=== PATIENT | female | born 2000 ===

== ENCOUNTER 2024-08-27 16:23 | Emergency (ER) | payer OTHER ==
[2024-08-27] MEDS: Oxymetazoline 0.05% Nasal Spray 30 ML Bottle NAS ONE (17:57)
[2024-08-27] MEDS: Azithromycin 250 MG Tab PO STA (19:11)
[2024-08-27] MEDS: Acetaminophen 500 MG Tab PO ONE (19:15)
== END 2024-08-27 19:22 | disposition home or self-care (01) ==
LOC: MW.ED 16:23
DX: O99.512 Diseases of the respiratory system complicating pregnancy, second trimester (principal); J06.9 Acute upper respiratory infection, unspecified; Z75.3 Unavailability and inaccessibility of health-care facilities; Z79.899 Other long term (current) drug therapy; Z3A.21 21 weeks gestation of pregnancy
CPT/HCPCS: 71046; 99283; A9270; 99282

== ENCOUNTER 2024-12-28 16:20 | Inpatient (IN) | payer OTHER ==
[2024-12-28] MEDS ORDERED: Sodium Chloride 0.9% 2.5 ML Syringe FLUSH PRN (18:13)
[2024-12-28] MEDS ORDERED: Carboprost Tromethamine 250 MCG/1 mL Vial IM PRN (18:13)
[2024-12-28] MEDS ORDERED: Water For Irrigation,Sterile 1,000 ML Container IRR PRN (18:13)
[2024-12-28] MEDS ORDERED: Sodium Chloride 0.9% 10 ML Syringe FLUSH PRN (18:13)
[2024-12-28] MEDS ORDERED: Oxytocin/0.9 % Sodium Chloride 30 UNIT/500 ML BAG IV SCH (18:15)
[2024-12-28 18:24] LABS: MEAN PLATELET VOLUME 9.0 fL (9.4-12.3); NRBC ABSOLUTE 0.00 K/uL (0.00-0.02); NRBC PERCENT 0.0 /100WBC (0.0-0.2); PLATELET COUNT,PLT 358 K/uL (150-400); RED BLOOD CELL COUNT 4.39 M/uL (4.10-5.30); WHITE BLOOD CELL COUNT,WBC 12.54 K/uL (3.9-11.3)
[2024-12-28] MEDS: Misoprostol 25 MCG (1/4 of 100 MCG) Tab PO ONE (20:08)
[2024-12-28] MEDS: Misoprostol 25 MCG (1/4 of 100 MCG) Tab VAG PRN (20:08)
[2024-12-29] MEDS: Lactated Ringers 1,000 ML IV SCH (00:12)
[2024-12-29] MEDS: Nalbuphine 10 MG/1 ML Vial IVPUSH PRN ×2 (02:07→22:12)
[2024-12-29] MEDS: Misoprostol 25 MCG (1/4 of 100 MCG) Tab VAG PRN (04:00)
[2024-12-29] MEDS: Ondansetron 4 MG/2 ML SDV IVPUSH PRN (07:09)
[2024-12-29] MEDS ORDERED: fentaNYL 100 MCG/2 ML SDV IVPUSH PRN (12:24)
[2024-12-29] MEDS: Butorphanol 1 MG/ML SDV IVPUSH PRN (13:42)
[2024-12-29] MEDS ORDERED: Misoprostol 25 MCG (1/4 of 100 MCG) Tab PO PRN (21:20)
[2024-12-30] MEDS: Ropivacaine HCl/PF 400 MG in Premix Bag 1 BAG EPIDUR SCH (01:07)
[2024-12-30] MEDS ORDERED: ePHEDrine 50 MG/ML SDV IVPUSH PRN (01:16)
[2024-12-30] MEDS ORDERED: dexmedeTOMIDine HCl 200 MCG/2 ML SDV EPIDUR SCH (01:30)
[2024-12-30] MEDS: Oxytocin/0.9 % Sodium Chloride 30 UNIT/500 ML BAG IV SCH (01:50)
[2024-12-30] MEDS: Lactated Ringers 1,000 ML IRR SCH (07:06)
[2024-12-30] MEDS: dexmedeTOMIDine HCl 200 MCG/2 ML SDV ONE (09:11)
[2024-12-30] MEDS: Ropivacaine HCl/PF 200 ML ONE (09:11)
[2024-12-30] MEDS: Terbutaline 1 MG/ML SDV SUBCUT PRN (11:16)
[2024-12-30] MEDS ORDERED: Morphine PF 10 MG/10 ML SDV ONE (12:52)
[2024-12-30] MEDS ORDERED: Ropivacaine 0.5% 5 MG/ML 30 ML SDV ONE (12:52)
[2024-12-30] MEDS ORDERED: Ketorolac 30 MG/ML SDV ONE (12:52)
[2024-12-30] MEDS ORDERED: Ondansetron 4 MG/2 ML SDV ONE (12:52)
[2024-12-30] MEDS ORDERED: Oxytocin 10 Units/1 ML SDV ONE ×2 (12:52→14:09)
[2024-12-30] MEDS ORDERED: Dexamethasone Sod Phos Preservative Free 10 MG/ML Vial ONE (12:52)
[2024-12-30] MEDS ORDERED: fentaNYL 100 MCG/2 ML SDV ONE (12:52)
[2024-12-30] MEDS ORDERED: Midazolam 1 MG/ML 2 ML SDV ONE (13:51)
[2024-12-30] MEDS ORDERED: Propofol 200 MG/20 ML SDV ONE (14:02)
[2024-12-30] MEDS ORDERED: Ondansetron 4 MG/2 ML SDV IVPUSH PRN ×3 (14:39→16:34)
[2024-12-30] MEDS ORDERED: Albuterol 0.083% 2.5 MG/3 ML Neb Soln NEB PRN (14:39)
[2024-12-30] MEDS ORDERED: fentaNYL 100 MCG/2 ML SDV IVPUSH PRN (14:39)
[2024-12-30] MEDS ORDERED: diphenhydrAMINE 50 MG/ML SDV IVPUSH PRN (14:39)
[2024-12-30] MEDS ORDERED: fentaNYL 50 MCG/ML SDV IVPUSH PRN (14:39)
[2024-12-30] MEDS ORDERED: Nalbuphine 10 MG/1 ML Vial IVPUSH PRN (14:39)
[2024-12-30] MEDS ORDERED: Acetaminophen/oxyCODONE 325-5 MG Tab PO PRN (14:39)
[2024-12-30] MEDS ORDERED: Naloxone 0.4 MG/ML SDV IVPUSH PRN (14:39)
[2024-12-30] MEDS ORDERED: droPERidol 2.5 MG/ML SDV IVPUSH ONE (14:43)
[2024-12-30] MEDS ORDERED: Sodium Chloride 0.9% 2.5 ML Syringe FLUSH PRN (16:34)
[2024-12-30] MEDS ORDERED: Sodium Chloride 0.9% 10 ML Syringe FLUSH PRN (16:34)
[2024-12-30] MEDS ORDERED: Carboprost Tromethamine 250 MCG/1 mL Vial IM PRN (16:34)
[2024-12-30] MEDS ORDERED: Lanolin 100% Cream 7 GM Tube TOP PRN (16:34)
[2024-12-30] MEDS ORDERED: Naloxone 0.4 MG/ML SDV IVPUSH ONE (16:34)
[2024-12-30] MEDS ORDERED: Oxytocin/0.9 % Sodium Chloride 30 UNIT/500 ML BAG IV SCH (16:45)
[2024-12-30 16:47] LABS: PH,UMBILICAL ARTERIAL 7.32 (7.18-7.38); PH,UMBILICAL VENOUS 7.36 (7.25-7.45)
[2024-12-30] MEDS: Ketorolac 30 MG/ML SDV IVPUSH SCH (19:15)
[2024-12-31 05:34] LABS: MEAN PLATELET VOLUME 8.7 fL (9.4-12.3); NRBC ABSOLUTE 0.00 K/uL (0.00-0.02); NRBC PERCENT 0.0 /100WBC (0.0-0.2); PLATELET COUNT,PLT 266 K/uL (150-400); RED BLOOD CELL COUNT 3.26 M/uL (4.10-5.30); WHITE BLOOD CELL COUNT,WBC 17.40 K/uL (3.9-11.3)
[2024-12-31 06:11] LABS: BAND ABSOLUTE MAN 0.52; BAND PERCENT MAN 3 %; EOSINOPHILS ABSOLUTE MAN 0.35 K/uL (0.00-0.45); EOSINOPHILS PERCENT MAN 2 % (0-6); LYMPHOCYTES ABSOLUTE MAN 3.31 K/uL (1.00-4.80); LYMPHOCYTES PERCENT MAN 19 % (24-44); MONOCYTES ABSOLUTE MAN 0.87 K/uL (0.00-0.80); MONOCYTES PERCENT MAN 5 % (0-8); SEG NEUTROPHILS ABSOLUTE MAN 12.35 K/uL (1.80-7.70); SEG NEUTROPHILS PERCENT MAN 71 % (41-71)
[2024-12-31 08:06] LABS: A/G RATIO 0.6 (0.9-1.6); ALANINE AMINOTRANSFERASE,ALT 14.0 IU/L (14-63); ASPARTATE AMNIOTRANSFERASE,AST 24.0 IU/L (15-37); BILIRUBIN TOTAL 0.2 mg/dL (0.2-1.0); BLOOD UREA NITROGEN,BUN 8.0 mg/dL (7.0-18.0); CARBON DIOXIDE,CO2 28.8 mmol/L (21.0-32.0); CHLORIDE,CL 105.0 mmol/L (98-107); CREATININE 0.6 mg/dL (0.6-1.0); EST CRCL DRUG DOSING (CG) 105.64 mL/min; GLUCOSE RANDOM 86.0 mg/dL (74-106); POTASSIUM,K 3.7 mmol/L (3.5-5.1); PROTEIN TOTAL,TP 5.2 g/dL (6.4-8.2); SODIUM,NA 138.0 mmol/L (136-145)
[2024-12-31 08:09] LABS: ESTIMATED GFR 130.0 mL/min (>60)
[2024-12-31] MEDS: Sodium Ferric Gluconate Cmplex 125 MG in Sodium Chloride 0.9% 100 ML IV SCH (09:58)
== END 2025-01-02 13:07 | disposition home or self-care (01) | DRG 788 ==
LOC: MW.OBCHECK 16:20 → MW.OB 16:22 → MW.OBCHECK 18:13 → MW.OB 18:13 → OBSVTOIN 12-30 13:40 → MW.OB 12-30 18:37
PROVIDERS: ADMIT Obstetrics & Gynecology; ATTEND Obstetrics & Gynecology
PROC: 10907ZC Drainage of Amniotic Fluid, Therapeutic from Products of Conception, Via Natural or Artificial Opening (ICD-10-PCS; 2024-12-30)
PROC: 3E0R3BZ Introduction of Anesthetic Agent into Spinal Canal, Percutaneous Approach (ICD-10-PCS; 2024-12-30)
PROC: 10D00Z1 Extraction of Products of Conception, Low, Open Approach (ICD-10-PCS; principal; 2024-12-30 13:00)
DX: O24.425 Gestational diabetes mellitus in childbirth, controlled by oral hypoglycemic drugs (principal); O99.214 Obesity complicating childbirth; O90.81 Anemia of the puerperium; Z3A.39 39 weeks gestation of pregnancy; Z37.0 Single live birth; Z79.899 Other long term (current) drug therapy; Z79.84 Long term (current) use of oral hypoglycemic drugs
CPT/HCPCS: 01967; 01968; 36415; 51702; 59025; 59514; 64488; 76805; 76805-26; 80053; 82803; 82947; 85025; 85027; 86592; 86850; 86900; 86901; A9270-GY; J0166; J0456; J0595; J0665; J0690; J1100; J1885; J2003; J2250; J2274; J2300; J2371; J2405; J2590; J2704; J2795; J2916; J3010; J3105; J7120